=== PATIENT | female | born 1995 | race Two or more races ===

== ENCOUNTER 2017-03-30 17:20 | Emergency (ER) | payer MEDICAID ==
[2017-03-30] MEDS ORDERED: LIDOCAINE 2% VISCOUS 15 ML UDCUP PO ONE (17:41)
[2017-03-30] MEDS ORDERED: MAG HYDROX/AL HYDROX/SIMETH 30 ML UDCUP PO ONE (17:41)
[2017-03-30] MEDS ORDERED: HYOSCYAMINE SULFATE 0.125 MG TAB ONE (17:45)
[2017-03-30] MEDS ORDERED: ASPIRIN 81 MG CHEWABLE TAB PO ONE (18:13)
[2017-03-30] MEDS ORDERED: NS 500 ML IV ONE (18:13)
--- NOTE | 2017-03-30 18:15 | EDPHY ---
H & P Stated Complaint: EPIGASTRIC PAIN INTERMITTENTLY SINCE YESTERDAY Time Seen by Provider: 03/30/17 18:06 HPI/ROS: CHIEF COMPLAINT: Chest pain HISTORY OF PRESENT ILLNESS: the patient is a 21-year-old female who comes to the emergency department complaining of intermittent chest pain for the last 2 days. She states that she has midsternal chest pain last for about a minute or 2 each time. She cannot think of any causal or relieving factors. She denies any trauma. She denies any recent illness. She denies shortness of breath. She does have albuterol and has been using her inhaler fairly regularly this last week. She states that she has a history of ingestion but this does not feel similar. No travel. No smoking. No leg pain or swelling. She denies . REVIEW OF SYSTEMS: Constitutional: denies: chills, fever, recent illness, recent injury EENTM: denies: blurred vision, double vision, nose congestion Respiratory: denies: cough, shortness of breath Cardiac: See HPI Gastrointestinal/Abdominal: denies: abdominal pain, diarrhea, nausea, vomiting, blood streaked stools Genitourinary: denies: dysuria, frequency, hematuria, pain Musculoskeletal: denies: joint pain, muscle pain Skin: denies: lesions, rash, jaundice, bruising Neurological: denies: headache, numbness, paresthesia, tingling, dizziness, weakness Hematologic/Lymphatic: denies: blood clots, easy bleeding, easy bruising Immunologic/allergic: denies: HIV/AIDS, transplant EXAM: GENERAL: Well-appearing, well-nourished and in no acute distress. HEAD: Atraumatic, normocephalic. EYES: Pupils equal round and reactive to light, extraocular movements intact, sclera anicteric, conjunctiva are normal. ENT: TMs normal, nares patent, oropharynx clear without exudates. Moist mucous membranes. NECK: Normal range of motion, supple without lymphadenopathy or JVD. LUNGS: Breath sounds clear to auscultation bilaterally and equal. No wheezes rales or rhonchi. HEART: Regular rate and rhythm without murmurs, rubs or gallops. ABDOMEN: Soft, nontender, normoactive bowel sounds. No guarding, no rebound. No masses appreciated. BACK: No CVA tenderness, no spinal tenderness, step-offs or deformities EXTREMITIES: Normal range of motion, no pitting or edema. No clubbing or cyanosis. NEUROLOGICAL: Cranial nerves II through XII grossly intact. Normal speech, normal gait. 5/5 strength, normal movement in all extremities, normal sensation PSYCH: Normal mood, normal affect. SKIN: Warm, dry, normal turgor, no visible rashes or lesions. Source: Patient Exam Limitations: No limitations - Personal History LMP (Females 10-55): Extended Cycle BCP/Inj - Medical/Surgical History Hx Asthma: Yes Hx Chronic Respiratory Disease: No Hx Diabetes: No Hx Cardiac Disease: No Hx Renal Disease: No Hx Cirrhosis: No Hx Alcoholism: No Hx HIV/AIDS: No Hx Splenectomy or Spleen Trauma: No Other PMH: Hypothyroid, MIGRAINES, ASTHMA. glucoma. eye surgeries. PCP Musa Umana - Family History Significant Family History: No pertinent family hx - Social History Smoking Status: Never smoked Alcohol Use: Sober Drug Use: None Constitutional: Initial Vital Signs Temperature (C) 37.3 C 03/30/17 17:34 Heart Rate 83 03/30/17 17:34 Respiratory Rate 18 03/30/17 17:34 Blood Pressure 114/76 03/30/17 17:34 O2 Sat (%) 95 03/30/17 17:34 O2 Delivery Mode Room Air O2 (L/minute) 2 Allergies/Adverse Reactions: No Known Allergies Allergy (Unverified 03/30/17 17:33) Home Medications: Medication Instructions Recorded Albuterol Hfa Anes Only [Proair 2 puffs IH Q4 PRN #1 mdi 03/08/15 Hfa Icu (*)] Medical Decision Making - Diagnostics EKG Interpretation: An EKG obtained and was read and documented in trace view. Please see trace view for full reading and report. Sinus rhythm, no acute ischemic changes Imaging Results: Imaging Impressions Chest X-Ray 03/30/17 18:14 Impression: Mild bronchitis, otherwise normal chest. ED Course/Re-evaluation: 7:15 p.m. the patient is asymptomatic. We discussed her test results which are reassuring. She and her declined any further workup or testing at this time. They are eager to go home. Vital signs remained stable. We discussed follow-up and indications for returning. Differential Diagnosis: Partial list of the Differential diagnosis considered include but were not limited to; musculoskeletal pain, GI, PE and although unlikely based on the history and physical exam, I also considered acute coronary disease, pneumonia, pneumothorax. I discussed these differential diagnoses and the plan with the patient as well as the usual and expected course. The patient understands that the diagnosis is provisional and that in medicine we are not always correct and that further workup is often warranted. Usual and customary warnings were given. All of the patient's questions were answered. The patient was instructed to return to the emergency department should the symptoms at all worsen or return, otherwise to followup with the physician as we discussed. - Data Points Laboratory Results: Laboratory Results 03/30/17 18:20 03/30/17 18:20 03/30/17 03/30/17 03/30/17 18:20 18:20 18:20 WBC RBC Hgb Hct MCV MCH MCHC RDW Plt Count MPV Neut % (Auto) Lymph % (Auto) [place] % (Auto) Eos % (Auto) Baso % (Auto) Nucleat RBC Rel Count Absolute Neuts (auto) Absolute Lymphs (auto) Absolute Monos (auto) Absolute Eos (auto) Absolute Basos (auto) Absolute Nucleated RBC Immature Gran % Immature Gran # D-Dimer 0.28 ug/mLFEU ug/mLFEU (0.00-0.50) Sodium 143 mEq/L mEq/L (134-144) Potassium 3.9 mEq/L mEq/L (3.5-5.2) Chloride 105 mEq/L mEq/L (97-110) Carbon Dioxide 20 mEq/l L mEq/l (22-31) Anion Gap 18 mEq/L H mEq/L (8-16) BUN 11 mg/dL mg/dL (7-23) Creatinine 0.7 mg/dL mg/dL (0.6-1.0) Estimated GFR > 60 Glucose 86 mg/dL mg/dL (70-100) Calcium 9.2 mg/dL mg/dL (8.5-10.4) Total Bilirubin 0.7 mg/dL mg/dL (0.1-1.4) Conjugated Bilirubin 0.3 mg/dL mg/dL (0.0-0.5) Unconjugated Bilirubin 0.4 mg/dL mg/dL (0.0-1.1) AST 21 IU/L IU/L (14-46) ALT 29 IU/L IU/L (9-52) Alkaline Phosphatase 81 IU/L IU/L (38-126) Troponin I < 0.012 ng/mL ng/mL (0-0.034) Total Protein 8.2 g/dL g/dL (6.3-8.2) Albumin 4.4 g/dL g/dL (3.5-5.0) Lipase 117.0 IU/L IU/L (23-300) Beta HCG, Qual NEGATIVE 03/30/17 18:20 WBC 10.87 10^3/uL H 10^3/uL (3.80-9.50) RBC 5.29 10^6/uL 10^6/uL (4.18-5.33) Hgb 15.9 g/dL g/dL (12.6-16.3) Hct 46.1 % % (38.0-47.0) MCV 87.1 fL fL (81.5-99.8) MCH 30.1 pg pg (27.9-34.1) MCHC 34.5 g/dL g/dL (32.4-36.7) RDW 13.1 % % (11.5-15.2) Plt Count 98 10^3/uL L 10^3/uL (150-400) MPV 11.0 fL fL (8.7-11.7) Neut % (Auto) 57.0 % % (39.3-74.2) Lymph % (Auto) 29.3 % % (15.0-45.0) Perkins % (Auto) 8.2 % % (4.5-13.0) Eos % (Auto) 4.7 % % (0.6-7.6) Baso % (Auto) 0.3 % % (0.3-1.7) Nucleat RBC Rel Count 0.0 % % (0.0-0.2) Absolute Neuts (auto) 6.20 10^3/uL 10^3/uL (1.70-6.50) Absolute Lymphs (auto) 3.19 10^3/uL H 10^3/uL (1.00-3.00) Absolute Monos (auto) 0.89 10^3/uL H 10^3/uL (0.30-0.80) Absolute Eos (auto) 0.51 10^3/uL H 10^3/uL (0.03-0.40) Absolute Basos (auto) 0.03 10^3/uL 10^3/uL (0.02-0.10) Absolute Nucleated RBC 0.00 10^3/uL 10^3/uL (0-0.01) Immature Gran % 0.5 % % (0.0-1.1) Immature Gran # 0.05 10^3/uL 10^3/uL (0.00-0.10) D-Dimer Sodium Potassium Chloride Carbon Dioxide Anion Gap BUN Creatinine Estimated GFR Glucose Calcium Total Bilirubin Conjugated Bilirubin Unconjugated Bilirubin AST ALT Alkaline Phosphatase Troponin I Total Protein Albumin Lipase Beta HCG, Qual Medications Given: Discontinued Medications Al Hydroxide/Mg Hydroxide (Maalox Susp) 30 ml PO EDNOW ONE Stop: 03/30/17 17:42 Last Admin: 03/30/17 17:57 Dose: 30 ml Aspirin (Aspirin) 324 mg PO EDNOW ONE Stop: 03/30/17 18:14 Last Admin: 03/30/17 18:32 Dose: 324 mg Sodium Chloride (Ns) 500 mls @ 0 mls/hr IV ONCE ONE PRN Reason: As Directed Stop: 03/30/17 18:14 Last Admin: 03/30/17 18:33 Dose: 500 mls Lidocaine (Lidocaine 2% Viscous) 5 ml PO EDNOW ONE Stop: 03/30/17 17:42 Last Admin: 03/30/17 17:56 Dose: 5 ml Departure - Departure Disposition: Home, Routine, Self-Care Clinical Impression: Chest pain Qualifiers: Chest pain type: unspecified Qualified Code(s): R07.9 - Chest pain, unspecified Condition: Fair Instructions: Chest Pain (ED) Referrals: Dasha Umana MD [Primary Care Provider] - As per Instructions
--- NOTE | 2017-03-30 18:24 | CPEKG ---
Heart Rate: 76 RR Interval: 789 P-R Interval: 156 QRSD Interval: 100 QT Interval: 400 QTC Interval: 450 P [place]: 43 QRS [place]: 101 T Wave [place]: 39 EKG Severity - ABNORMAL ECG - EKG Impression: SINUS RHYTHM EKG Impression: LEFT POSTERIOR FASCICULAR BLOCK Electronically Signed By: Dayton Nino 30-Mar-2017 18:30:06
[2017-03-30 18:32] LABS: % IMMATURE GRANULYOCYTES 0.5 % (0.0-1.1); ABSOLUTE IMMATURE GRANULOCYTES 0.05 10^3/uL (0.00-0.10); ADD DIFF? NO; ADD MORPH? NO; ADD SCAN? NO; ATYPICAL LYMPHOCYTE FLAG 20 (0-99); FRAGMENT RBC FLAG 0 (0-99); HEMATOCRIT 46.1 % (38.0-47.0); HEMOGLOBIN 15.9 g/dL (12.6-16.3); LEFT SHIFT FLG 0 (0-99); LIPEMIA HEMOLYSIS FLAG 90 (0-99); MEAN CELL HEMOGLOBIN 30.1 pg (27.9-34.1); MEAN CELL HEMOGLOBIN CONCENTR. 34.5 g/dL (32.4-36.7); MEAN CELL VOLUME 87.1 fL (81.5-99.8); PLATELET CLUMPS FLAG 0 (0-99); PLATELET COUNT 98 10^3/uL (150-400); RED BLOOD CELL COUNT 5.29 10^6/uL (4.18-5.33); RED CELL DISTRIBUTION WIDTH 13.1 % (11.5-15.2)
[2017-03-30 18:47] VITALS: RESP 16
[2017-03-30 18:48] LABS: ALANINE AMINOTRANSFERASE 29 IU/L (9-52); ALBUMIN 4.4 g/dL (3.5-5.0); ALKALINE PHOSPHATASE 81 IU/L (38-126); ANION GAP 18 mEq/L (8-16); ASPARTATE AMINOTRANSFERASE 21 IU/L (14-46); BILIRUBIN,TOTAL 0.7 mg/dL (0.1-1.4); BILIRUBIN-CONJUGATED 0.3 mg/dL (0.0-0.5); BILIRUBIN-UNCONJUGATED 0.4 mg/dL (0.0-1.1); CALCIUM 9.2 mg/dL (8.5-10.4); CARBON DIOXIDE 20 mEq/l (22-31); CHLORIDE 105 mEq/L (97-110); CREATININE 0.7 mg/dL (0.6-1.0); GLOMERULAR FILTRATION RATE > 60; GLUCOSE 86 mg/dL (70-100); POTASSIUM 3.9 mEq/L (3.5-5.2); SODIUM 143 mEq/L (134-144); TOTAL PROTEIN 8.2 g/dL (6.3-8.2)
[2017-03-30 18:58] LABS: TROPONIN I < 0.012 ng/mL (0-0.034)
[2017-03-30 19:38] VITALS: BP 106/74; PULSE 89; TEMP 99; O2SAT 96
== END 2017-03-30 19:33 | disposition home or self-care (01) ==
LOC: CED 17:20
DX: R07.9 Chest pain, unspecified (principal); J45.909 Unspecified asthma, uncomplicated
CPT/HCPCS: 71020-PO; 80048-PO; 80076-PO; 83690-PO; 84484-PO; 84703-PO; 85025-PO; 85378-PO

== ENCOUNTER 2017-11-18 22:41 | Emergency (ER) | payer MEDICAID ==
[2017-11-18] MEDS ORDERED: IPRATROPIUM/ALBUTEROL 3 ML DEYVIAL IH ONE (22:49)
--- NOTE | 2017-11-18 23:06 | EDPHY ---
H & P Time Seen by Provider: 11/18/17 23:01 HPI/ROS: CC: Shortness of breath HPI: This 22-year-old female with past medical history of asthma, glaucoma, migraines, and oral cold sores presents to the emergency department today with her mother for increasing shortness of breath today after running out of her albuterol inhaler 2 days ago. She states she has been having increasing shortness of breath over the last month and relates this due to allergies. She has not had a recent illness. She denies fever, cough, runny nose, ear pain, sore throat. No ill contacts. She does not remember her last ER visit for asthma and states she normally goes to the clinic. She denies ever having hospitalizations due to her asthma or having to take prednisone. She has an appointment with her primary care provider on November 25. She has not received a flu shot this year. REVIEW OF SYSTEMS: Constitutional: No fever, no chills. Eyes: No discharge. ENT: No sore throat. Respiratory: See HPI. Cardiac: No chest pain, no palpitations. Gastrointestinal: No abdominal pain, no vomiting. Genitourinary: No hematuria. Musculoskeletal: No back pain. Skin: No rashes. Neurological: No headache. Past Medical/Surgical History: PMH: Asthma, glaucoma, migraines, oral herpes PSH: Eye surgery, PRK FH: Mother has thyroid problems and diabetes; father is in good health; father has diabetes No known drug allergies Medications include albuterol inhaler; she has a contraception implant in her left upper arm. First day last menstrual period is unknown due to contraceptive implant; she is Her primary care provider is Dr. Dasha Umana Social History: She denies tobacco products, alcohol use, or marijuana Smoking Status: Never smoked Physical Exam: General Appearance: Alert, mod distress. Eyes: Pupils equal and round no pallor or injection. ENT, Mouth: Mucous membranes are moist. Healing oral herpes lesions on upper and lower lips. No pharyngeal erythema or exudates; TMs clear bilaterally. Respiratory: Diminished breath sounds with mild scattered wheezing. Cardiovascular: Regular rate and rhythm. Gastrointestinal: Abdomen is soft and nontender, no masses, bowel sounds normal. Neurological: Awake and alert, sensory and motor exams grossly normal. Skin: Warm and dry, no rashes. Musculoskeletal: Neck is supple nontender. Extremities are symmetrical, full range of motion. Psychiatric: Patient is oriented X 3, there is no agitation. DIFFERENTIAL DIAGNOSIS: After history and physical exam differential diagnosis was considered for but not limited to upper respiratory infection viral versus bacterial, acute exacerbation of asthma, allergies, pulmonary embolism unlikely Constitutional: Initial Vital Signs Temperature (C) 99.0 F 11/18/17 22:56 Heart Rate 102 H 11/18/17 22:56 Respiratory Rate 22 H 11/18/17 22:56 Blood Pressure 106/84 H 11/18/17 22:56 O2 Sat (%) 93 11/18/17 22:56 O2 Delivery Mode Room Air Allergies/Adverse Reactions: No Known Allergies Allergy (Unverified 11/18/17 22:50) Home Medications: Medication Instructions Recorded Albuterol Hfa Anes Only [Proair 2 puffs IH Q4 PRN #1 mdi 03/08/15 Hfa Icu (*)] Control 11/18/17 predniSONE [Prednisone] 10 mg PO DAILY 6 Days #7 tablet 11/18/17 Medical Decision Making ED Course/Re-evaluation: The patient was seen and examined. Vital signs were reviewed. After an initial DuoNeb the patient is lung sounds were clear and her saturations were 95 % on room air. She still felt mildly short of breath and therefore was given a 2nd albuterol treatment. We discussed prednisone in the setting of her glaucoma. She understands the risks of corticosteroids of increasing intra- ocular pressure which is most likely going to be not significant due to the short course prescribed. She would like to take the prednisone. She was given 40 mg orally in the emergency department and a prescription for a 6 day prednisone taper starting at 20 mg a day. She was given an albuterol meter dose inhaler from the ER. She will follow up with her regular provider on November 25 as scheduled or return to the emergency room sooner if any further problems or concerns. - Data Points Medications Given: Discontinued Medications Albuterol (Proventil Neb) 3 ml IH EDNOW ONE Stop: 11/18/17 23:22 Last Admin: 11/18/17 23:23 Dose: 3 ml Albuterol/Ipratropium (Duoneb) 3 ml IH EDNOW ONE Stop: 11/18/17 22:50 Last Admin: 11/18/17 22:54 Dose: 3 ml Departure - Departure Disposition: Home, Routine, Self-Care Clinical Impression: Exacerbation of asthma Condition: Good Instructions: Asthma (ED), Albuterol (By breathing), Prednisone (By mouth) Additional Instructions: Keep your appointment with your doctor on 11/25/17 as scheduled. Talk about how you have been more short of breath over the last month and about your concerns about prednisone use with glaucoma. I feel a short course of Prednisone will not cause significant problems with your glaucoma. Return to the ED if you have any further problems or concerns. Referrals: Dasha Umana MD [Primary Care Provider] - 11/25/17 Prescriptions: predniSONE [Prednisone] 10 mg PO DAILY 6 Days #7 tablet
[2017-11-18] MEDS ORDERED: ALBUTEROL 3 ML DEYVIAL IH ONE (23:21)
[2017-11-18 23:26] VITALS: BP 105/74; PULSE 97; RESP 18; TEMP 98.6; O2SAT 97
[2017-11-18] MEDS ORDERED: ALBUTEROL INH PREPACK MDI TAKEHOME ONE (23:31)
[2017-11-18] MEDS ORDERED: predniSONE 10 MG TAB PO ONE (23:42)
== END 2017-11-19 | disposition home or self-care (01) ==
LOC: CED 22:41
DX: J45.901 Unspecified asthma with (acute) exacerbation (principal)
CPT/HCPCS: J7512; J7613

== ENCOUNTER 2017-12-31 22:52 | Emergency (ER) | payer MEDICAID ==
[2017-12-31] MEDS ORDERED: IPRATROPIUM/ALBUTEROL 3 ML DEYVIAL IH ONE (23:03)
[2017-12-31 23:13] VITALS: RESP 16; TEMP 97.9
[2017-12-31] MEDS ORDERED: ALBUTEROL INH PREPACK MDI TAKEHOME ONE (23:13)
--- NOTE | 2017-12-31 23:54 | EDPHY ---
H & P Time Seen by Provider: 12/31/17 23:00 HPI/ROS: CC: shortness of breath HPI: This 22-year-old female with past medical history of asthma, glaucoma, migraines and oral cold sores presents to emergency department today with her mother for shortness of breath that started about an hour prior to arrival. She states she was napping and woke up with an exacerbation of her asthma. She has not had her albuterol inhaler in a couple weeks. She states when she saw her primary care provider the last time she was given a steroid inhaler but no refills on her albuterol inhaler and was told she needed to make an appointment to get the prescription. She was also given an oral medication at that time but does not remember the name of it "it's square". She denies recent illness. Exacerbating symptoms include dust and she works at a [employer]. REVIEW OF SYSTEMS: Constitutional: No fever, no chills. Eyes: No discharge. ENT: No sore throat. Respiratory: No cough. Cardiac: No chest pain, no palpitations. Gastrointestinal: No abdominal pain, no vomiting. Genitourinary: No hematuria. Musculoskeletal: No back pain. Skin: No rashes. Neurological: No headache. Past Medical/Surgical History: PMH: Asthma, glaucoma, migraines, oral herpes PSH: Eye surgery, PRK FH: Mother has thyroid problems and diabetes; father also has diabetes No known drug allergies Medications include Flovent, albuterol inhaler, and oral asthma medication, contraception implant in left upper arm She is 1 para [address] Acosta Castellon Social History: The patient does not use tobacco products, does not use alcohol or marijuana; she works at [email or web address]. Smoking Status: Never smoked Physical Exam: General Appearance: Alert, mild distress. Eyes: Pupils equal and round no pallor or injection. ENT, Mouth: Mucous membranes are moist. Respiratory: There are no retractions, lung sounds are diminished but clear to auscultation. Cardiovascular: Regular rate and rhythm. Gastrointestinal: Abdomen is soft and nontender. Neurological: Awake and alert, sensory and motor exams grossly normal. Skin: Warm and dry, no rashes. Musculoskeletal: Neck is supple nontender. Extremities are symmetrical, full range of motion. Psychiatric: Patient is oriented X 3, there is no agitation. DIFFERENTIAL DIAGNOSIS: After history and physical exam differential diagnosis was considered for but not limited to: acute exacerbation of asthma, allergies , no signs of pulmonary embolism or upper respiratory infection Constitutional: Initial Vital Signs Temperature (C) 97.9 F 12/31/17 22:55 Heart Rate 86 12/31/17 22:55 Respiratory Rate 16 12/31/17 22:55 Blood Pressure 123/80 H 12/31/17 22:55 O2 Sat (%) 96 12/31/17 22:55 O2 Delivery Mode Room Air Allergies/Adverse Reactions: No Known Allergies Allergy (Unverified 11/18/17 22:50) Home Medications: Medication Instructions Recorded Fluticasone Hfa 110 Mcg [Flovent 12/31/17 110 MCG Hfa MDI (*)] Medical Decision Making ED Course/Re-evaluation: Patient was seen and examined. Vital signs were reviewed. Her O2 sats were 93- 96% on room air upon arrival. She was given a DuoNeb and was feeling much better. Her oxygen saturations were unsteady 95% on room air at discharge. She declined further treatment as well as prednisone due to her glaucoma. She was given an albuterol meter dose inhaler from the ER for home use. She will follow up with her primary care provider to get a prescription for further inhalers. She will continue her Flovent as well as the oral medication given at her last appointment. She will continue to monitor her her peak flows which she states are 300 cc at best. She may want to consider referral to a rolling down machine operator and I have advised her to discuss this with her primary care provider. I did put down the name of our rolling down machine operator on-call, Dr. Rodolfo King, on her discharge paperwork. She will follow up with her primary care provider or return to the emergency room sooner if her symptoms change or worsen as discussed. - Data Points Medications Given: Discontinued Medications Albuterol Sulfate (Proventil Inh Prepack) 1 mdi TAKEHOME EDNOW ONE Stop: 12/31/17 23:14 Last Admin: 01/01/18 00:03 Dose: 1 mdi Albuterol/Ipratropium (Duoneb) 3 ml IH EDNOW ONE Stop: 12/31/17 23:04 Last Admin: 12/31/17 23:08 Dose: 3 ml Departure - Departure Disposition: Home, Routine, Self-Care Clinical Impression: Exacerbation of asthma Condition: Good Instructions: Albuterol (By breathing), Asthma (ED), How to Use a Peak Flow Meter (ED), Pulmonary Function Tests (DC) Additional Instructions: Follow up with your doctor as directed (no later than next week). Use your medications as directed. Ask if you need a referral to see a lung specialist ( [employer]). I have given you the name of our rolling down machine operator director of environmental services this evening, Dr. Rodolfo King. Return to the ER if you have changing or worsening symptoms. Referrals: Acosta Castellon DO [Primary Care Provider] - As per Instructions Rodolfo King MD [Medical Doctor] - As per Instructions
[2018-01-01 00:07] VITALS: BP 103/77; PULSE 91; O2SAT 95
== END 2017-12-31 23:59 | disposition home or self-care (01) ==
LOC: CED 22:52
DX: J45.901 Unspecified asthma with (acute) exacerbation (principal)

== ENCOUNTER → 2018-01-27 | Outpatient (CLI) | payer MEDICAID | LOC: CIMAGING 16:56 | PROVIDERS: ATTEND Family Medicine | DX: R06.02 Shortness of breath (principal) | CPT/HCPCS: 71046-PO ==

== ENCOUNTER 2018-01-29 23:54 | Emergency (ER) | payer MEDICAID ==
[2018-01-30 00:27] VITALS: TEMP 97.9; O2SAT 96
--- NOTE | 2018-01-30 00:44 | EDPHY ---
H & P Time Seen by Provider: 01/30/18 00:10 HPI/ROS: CHIEF COMPLAINT: 2 hr of marked breathing difficulties with cough, precipitating vomiting and pain in the lower chest HISTORY OF PRESENT ILLNESS: This is a 22-year-old female with a history of mild asthma. She was described as having exercise-induced asthma since is middle school. Typically she would only take the puffer inhaler, ProAir, prior to exercise. She might go whole month or 2 without any use it. She might use it 1-2 times max per month. She recalls having a prior ER visit in the course of the last 10 years for asthma but never an overnight stay. No prior intubation. Furthermore, she has no known precipitants such as seasonal variations. However, beginning this past November, some 8 weeks ago, she started having protracted more difficulties with breathing. At that visit she was sent home with a peak flow device noting that her predicted was 430 and she had a personal best of 300. She was given a prednisone pack. Somewhere along the line in December she was placed on Flovent as well as Singulair. Finally, seeing her PCP some 2 days ago she had negative chest [id number] reviewed. At that point she was put on additional inhaler. She believes it was Serevent. Earlier today, while at work she noted she had 3 episodes of diarrheal stools which was nonbloody non green none black. Her risk factors for diarrhea are benign as follows: Travel: None Others: None Antibiotics: None Bad Food: None Bad Water: None Recent Surgery: None Through the course of her work today she was able take in some fluids including lemonade and Gatorade. However, this evening she has noted that she has not urinated much at all. However throughout the course of the day she was having no emesis until last 2 hr as noted below. Dinner was at 9:00 p.m. Consisting of a aches. She has not want to have stomach related problems. She might get heartburn 1-2 times every 6 months. She never has had water brash. She does not have any Maalox or Mylanta around the house as she never needs it. Beginning around 10:00 p.m. 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 She started getting short of breath and started using her puffer. However she also started having cough which would not stop. She is able to speak in full sentences with the cough as she was talking to her mother. However the cough seemed to be so bad that caused her vomit 3 separate times of course of 20 min. During all of that time over the course of the 2 hr she started using inhaler more more rapidly. She states she used at least 25 pus. In fact she reports that she was using the puffer chest she walked in the door. This is like no other breathing difficulty. At the same time with all that going on about, as noted in the prior paragraph, she noted pain in the lower chest which was new. This area was not tender to the touch, and only bothers her when she would take a deep breath as well as coughing. This is an ache-like sensation and did not radiate to the back or abdomen and was [id number], present only when she would cough or take a deep breath. Further, she also had bilateral as well as midline upper abdominal distress when the vomiting was occurring. This distress in upper abdominal discomfort is steady, nonradiating, achy like in nature, different than that in the chest, mild in nature and started only while she was having the vomiting. PE/DVT risk factors Prior DVT/PE: No Immobilization: No Splint/Cast: No Surgery, recently: No Family history of hypercoaguable syndrome: No Unilateral leg swelling: No Obesity: No REVIEW OF SYSTEMS: Constitutional: No fever, no chills. Eyes: No discharge. She has red eyes as she has had since her Lasix surgery this past August. There is a plan to remodel the right high further ENT: No sore throat, earache or difficulty swallowing Cardiovascular: See above Respiratory: See above. Gastrointestinal: See above. Genitourinary: No hematuria or frequency. Musculoskeletal: No back pain. Skin: No rashes. Neurological: No headache. 10 point ROS otherwise negative Source: Patient Exam Limitations: No limitations - Medical/Surgical History Hx Asthma: Yes Hx Chronic Respiratory Disease: No Hx Diabetes: No Hx Cardiac Disease: No Hx Renal Disease: No Hx Cirrhosis: No Hx Alcoholism: No Hx HIV/AIDS: No Hx Splenectomy or Spleen Trauma: No Other PMH: Hypothyroid, MIGRAINES, ASTHMA. glucoma. eye surgeries. PCP Musa Umana. ARF with post hemorrhage in 2016 - Family History Significant Family History: Asthma - Social History Smoking Status: Never smoked Alcohol Use: None Drug Use: None - Physical Exam Exam: General Appearance: Alert, no distress. She is able to speak in full sentences. She does have a sense of some difficulty breathing however as it persists though I am unable to hear any wheezing per se on my clinical exam as noted below. Furthermore, has a layer down worth the rest of the exam she does note that it causes of breathing become a little worse which is apparently distinct than the lower chest discomfort which is worse when she lays down. She is febrile. Normal phonation. No respiratory distress per se. Eyes: Pupils equal and round no pallor, though mild injection. No icterus ENT, Mouth: Mucous membranes slightly dry Pharynx without erythema or exudate. TM Clear. Neck: No adenopathy. Supple. No JVD. Trachea in midline. Respiratory: There are no retractions, loverall decreased air entry, though the breathing effort not deep as she sat in the stretcher, though when I sat her up with legs dangling at the bedside, and asked her to form at peak flow maneuver, BS were equal and audible, again without wheezes.. He was able to move the curtain that is some 8 ft away, during this time I heard better air exchange. Chest wall: Nontender to palpation. No crepitus. Cardiovascular: Regular rate and rhythm, without rubs or murmurs. No Bill crunch Abdomen: Soft, tender in the upper abdomen mildly so on the right versus left though no Marvin sign. Neurological: Ox3. No motor weakness. Sensation intact. Gait nl. Skin: Warm and dry, no rashes. Musculoskeletal: No joint swelling. Extremities: No edema. Homans sign negative. No cords. Psychiatric: Normal affect. Patient is oriented X 3. There is no agitation Constitutional: Initial Vital Signs Temperature (C) 36.6 C 01/30/18 00:17 Heart Rate 112 H 01/30/18 00:17 Respiratory Rate 16 01/30/18 00:17 Blood Pressure 117/80 01/30/18 00:17 O2 Sat (%) 96 01/30/18 00:17 O2 Delivery Mode Room Air Allergies/Adverse Reactions: No Known Allergies Allergy (Verified 01/30/18 00:14) Home Medications: Medication Instructions Recorded Fluticasone Hfa 110 Mcg [Flovent 12/31/17 110 MCG Hfa MDI (*)] Proair Hfa 01/30/18 Serevent Diskus (*) 01/30/18 Singulair 01/30/18 predniSONE [Prednisone] 20 mg PO BID #12 tablet 01/30/18 Medical Decision Making - Diagnostics EKG Interpretation: EKG: Interpreted by me contemporaneously. Rhythm: Normal sinus rhythm, sinus tach. Heart rate 104 QTc 469 QRS: normal the QRS duration is somewhat high at 100 STT segment: normal T Waves: Normal Q waves none Summary: Normal Ekg, sinus tachycardia ED Course/Re-evaluation: Attempts were made by me to perform a bedside ultrasound. However due to overlying bowel gas I was unable to find the gallbladder. Upon clinical exam in the amount of puffer doses that she had used seem suspicious for status asthmaticus. Thus she was given his initial treatment of a DuoNeb here with pre and post peak flows the did noted a demonstrable improvement from 275 to 310. Whereas her predicted on the scale is 470, she notes her personal best is 300 at home. Thereby it continues to be unclear as to whether she is back to baseline or is exhibiting further breathing difficulties as the 300 level as considerably lower than the predicted 470. This predicted peak flow of 470 is based upon the package insert however other literature I have seen suggest more of a peak flow of approximately 374 woman her size and age. This in light of someone who has had previously exercise induced asthma and markedly worsening condition since November. Perhpas her work environment is that bad for her. Nonetheless, she is better after some 24 puffs of an inhaler at home in the last 2 hr, though exhibit some difficulty breathing when we laid her down. However, had her breathing spell been so bad at home, I would expect a propensity for relapse after arrival here - which did not bear out to be the case. Further the clinical story as noted above sounds more as a status asthmatic is than say anxiety or PE - noting that she has perc positive with the heart rate is now 95 - 104, before the breathing treatment as I was interviewing her. Her perc score is 1, though at times here she is tachy. Thus a D-dimer was necessary. Laboratory evaluation includes the following: Low potassium 3.1, likely reflective of all the Proventil she used WBC of 14.4, stress response Renal function normal LFTs normal Lipase normal. D-dimer is normal Old charts were reviewed. She is this is her 3rd visit here in 3 months for breathing difficulties. The 2 prior episodes do not sound as bad and were so she with running out of her inhaler. Approximately an hour and half later I examined her again. She continued to speak to me in full sentences, as well as paragraphs. Furthermore she went on to allude to the worsening of her underlying asthma related symptoms in the setting of the new dust environment at work. There is no deterioration. I would have considered that a high likelihood in the setting of as status asthmaticus cured by some 24 puffs at home, which did not materialize. Thus, I do not feel that this was a straight forward simple case of worsening asthma precipitating both a post tussive vomiting as well as upper abdominal distress. Most likely we are having a problem laid to an underlying gastrointestinal disorder of a viral illness such as gastroenteritis with diarrhea earlier today and then vomited tonight precipitating an aggravating underlying asthmatic condition. There was no Marvin sign on exam, symptoms were improving and pretty much gone in the upper abdomen and the electrolytes (hx of post hemorrhage with renal failure in 2016) as well as LFTs and lipase were normal. Thus I do not see that were dealing with a problem related to gallstones. I would expect her to have some nausea again over the next 24 hr but complete resolution of her GI symptoms likewise the next 24 hr and thus will have her have some Zofran on the ready in case symptoms recur. Furthermore she will have 3 days of prednisone for underlying asthma related issues. Differential Diagnosis: Differential diagnosis includes but is not limited to the following: Pneumothorax, pleurisy, pulmonary embolus, , Pneumonia, bronchospasm, Asthma, anxiety, muscle strain, bronchitis, asthmatic bronchitis. - Data Points Laboratory Results: Laboratory Results 01/30/18 01:21 01/30/18 01:21 Medications Given: Discontinued Medications Albuterol/Ipratropium (Duoneb) 3 ml IH EDNOW ONE Stop: 01/30/18 01:00 Last Admin: 01/30/18 01:03 Dose: 3 ml Albuterol/Ipratropium (Duoneb) 3 ml IH EDNOW ONE Stop: 01/30/18 02:39 Last Admin: 01/30/18 02:39 Dose: 3 ml Albuterol/Ipratropium (Duoneb) 3 ml IH EDNOW ONE Stop: 01/30/18 02:50 Last Admin: 01/30/18 04:22 Dose: Not Given Sodium Chloride (Ns) 1,000 mls @ 0 mls/hr IV EDNOW ONE; Wide Open PRN Reason: Protocol Stop: 01/30/18 01:00 Last Admin: 01/30/18 01:10 Dose: 1,000 mls Ondansetron HCl (Zofran Odt 4 Mg Prepack#2) 1 btl TAKEHOME EDNOW ONE Stop: 01/30/18 02:37 Last Admin: 01/30/18 02:41 Dose: 1 btl Prednisone (Prednisone) 40 mg PO EDNOW ONE Stop: 01/30/18 01:28 Last Admin: 01/30/18 02:05 Dose: 40 mg Departure - Departure Disposition: Home, Routine, Self-Care Clinical Impression: Acute asthma exacerbation Condition: Good Instructions: Asthma (ED) Additional Instructions: Add the following medications: Zofran for nausea Prednisone for 3 days Continue using your other inhalers. Note, ProAir should still be used for rescue purposes, much as he did tonight Return if you using the ProAir more than every hour Referrals: Patient,NotPresent [Primary Care Provider] - 1-2 days without fail Prescriptions: predniSONE [Prednisone] 20 mg PO BID #12 tablet
[2018-01-30] MEDS ORDERED: IPRATROPIUM/ALBUTEROL 3 ML DEYVIAL ONE (00:54)
[2018-01-30] MEDS ORDERED: IPRATROPIUM/ALBUTEROL 3 ML DEYVIAL IH ONE ×3 (00:59→02:49)
[2018-01-30] MEDS ORDERED: NS 1,000 ML IV ONE (00:59)
[2018-01-30] MEDS ORDERED: predniSONE 20 MG TAB PO ONE (01:27)
[2018-01-30 01:29] LABS: PLATELET COUNT 77 10^3/uL (150-400)
--- NOTE | 2018-01-30 01:35 | CPEKG ---
Heart Rate: 104 RR Interval: 577 P-R Interval: 160 QRSD Interval: 100 QT Interval: 356 QTC Interval: 469 P Warne: 56 QRS Warne: 98 T Wave Warne: 38 EKG Severity - OTHERWISE NORMAL ECG - EKG Impression: SINUS TACHYCARDIA EKG Impression: BORDERLINE RIGHT AXIS DEVIATION Electronically Signed By: Arya Matias 30-Jan-2018 02:46:53
[2018-01-30] MEDS ORDERED: ONDANSETRON 4MG PREPACK#2 BTL TAKEHOME ONE (02:36)
[2018-01-30 02:58] VITALS: BP 106/69; PULSE 104; RESP 14
== END 2018-01-30 03:08 | disposition home or self-care (01) ==
LOC: CED 23:54
DX: J45.901 Unspecified asthma with (acute) exacerbation (principal); E86.9 Volume depletion, unspecified
CPT/HCPCS: 80048-PO; 80076-PO; 83690-PO; 85025-PO; 85378-PO; J7512